=== PATIENT | female | born 2000 | race African-American/Black ===

== ENCOUNTER → 2023-10-23 | Day surgery (SDC) | payer BC, OTHER | END | disposition home or self-care (01) | LOC: FRADUS-SUR 09:53 | PROVIDERS: ATTEND Specialist | PROC: 0HBT3ZX Excision of Right Breast, Percutaneous Approach, Diagnostic (ICD-10-PCS; principal; 2023-10-23) | DX: D24.1 Benign neoplasm of right breast (principal); N63.13 Unspecified lump in the right breast, lower outer quadrant | CPT/HCPCS: 19083; 88305-TC ==